=== PATIENT | male | born 1975 | race Caucasian/White ===

== ENCOUNTER 2020-04-24 09:55 | Emergency (ER) | payer OTHER ==
--- NOTE | 2020-04-24 10:24 | ER Document Report ---
ED Hand/Wrist Injury - General Chief Complaint: Hand Injury Stated Complaint: LEFT HAND/WRIST INJURY Time Seen by Provider: 04/24/20 10:19 Primary Care Provider: HUYEN ROY DO [ACTIVE STAFF] - Follow up as needed Mode of Arrival: Ambulatory Information source: Patient Notes: 45-year-old male presented to ED for crush injury to his left hand and wrist. He states he thinks several of his fingers are broken as well as his wrist. He states the air tank fell on his left hand and wrist. He is alert oriented respirations regular nonlabored speaking in full sentences. - HPI Injury to: Wrist, Middle finger - Her fingers hurt the middle finger is the worst on the left hand Onset: Just prior to arrival Where: Work Timing: Still present Quality of pain: Sharp, Throbbing Severity: Severe Pain Level: 5 Context: Crush - Related Data Allergies/Adverse Reactions: No Known Allergies Allergy (Verified 04/24/20 10:22) Past Medical History - General Information source: Patient - Social History Smoking Status: Current Every Day Smoker Cigarette use (# per day): Yes - Pack per day Smoking Education Provided: Yes - 4 minutes Frequency of alcohol use: None Drug Abuse: None Family History: Reviewed & Not Pertinent Patient has suicidal ideation: No Patient has homicidal ideation: No - Past Medical History Cardiac Medical History: Reports: None Pulmonary Medical History: Reports: None EENT Medical History: Reports: None Neurological Medical History: Reports: None Endocrine Medical History: Reports: None Renal/ Medical History: Reports: None Malignancy Medical History: Reports None GI Medical History: Reports: None Musculoskeletal Medical History: Reports Hx Musculoskeletal Trauma Skin Medical History: Reports None Psychiatric Medical History: Reports: Hx Post Traumatic Stress Disorder Traumatic Medical History: Reports: None Infectious Medical History: Reports: None Past Surgical History: Reports: Hx Appendectomy, Hx Orthopedic Surgery - Ulnar nerve repair right Review of Systems - Review of Systems Constitutional: No symptoms reported EENT: No symptoms reported Cardiovascular: No symptoms reported Respiratory: No symptoms reported Gastrointestinal: No symptoms reported Genitourinary: No symptoms reported Male Genitourinary: No symptoms reported Musculoskeletal: Other - Left wrist and hand pain swelling injury Skin: No symptoms reported Hematologic/Lymphatic: No symptoms reported Neurological/Psychological: No symptoms reported -: Yes All other systems reviewed and negative Physical Exam - Vital signs Vitals: Temp Pulse Resp BP Pulse Ox 98.1 F 78 20 134/79 H 96 04/24/20 10:02 04/24/20 10:02 04/24/20 10:02 04/24/20 10:02 04/24/20 10:02 Interpretation: Normal - General General appearance: Appears well, Alert - HEENT Head: Normocephalic, Atraumatic Eyes: Normal Pupils: PERRL - Respiratory Respiratory status: No respiratory distress Chest status: Nontender Breath sounds: Normal Chest palpation: Normal - Cardiovascular Rhythm: Regular Heart sounds: Normal auscultation Murmur: No - Abdominal Inspection: Normal Distension: No distension Bowel sounds: Normal Tenderness: Nontender Organomegaly: No organomegaly - Back Back: Normal, Nontender - Extremities General upper extremity: Normal temperature General lower extremity: Normal inspection, Nontender, Normal color, Normal ROM, Normal temperature, Normal weight bearing. No: Yuval's sign Wrist: Tender, Ecchymosis - Due to pain, Limited ROM Hand: Tender, Ecchymosis, No evidence of human bite, No evidence of FB, Swelling - Neurological Neuro grossly intact: Yes Cognition: Normal Orientation: AAOx4 Avinash Coma Scale Eye Opening: Spontaneous Avinash Coma Scale Verbal: Oriented [place] Coma Scale Motor: Obeys Commands [place] Coma Scale Total: 15 Speech: Normal Motor strength normal: LUE, RUE, LLE, RLE Sensory: Normal - Psychological Associated symptoms: Normal affect, Normal mood - Skin Skin Temperature: Warm Skin Moisture: Dry Skin Color: Normal Course - Re-evaluation Re-evalutation: 04/24/20 21:08 No signs or symptoms of any bony abnormalities noted on the x-rays to his hand and wrist. Patient was given instructions on elevation ice ibuprofen or anti- inflammatories. He was also treated with a cock-up splint due to the pain to the hand and wrist. Patient was instructed to follow-up with the customer energy specialist if he continues to have pain. - Vital Signs Vital signs: Temp Pulse Resp BP Pulse Ox 97.4 F 65 16 122/73 99 04/24/20 11:42 04/24/20 11:42 04/24/20 11:42 04/24/20 11:42 04/24/20 11:42 - Diagnostic Test Radiology reviewed: Image reviewed, Reports reviewed Procedures - Immobilization Left Wrist Time completed: 11:20 Pre-Proc Neuro Vasc Exam: Normal Immobilizer type: Cock-up Performed by: PCT Post-Proc Neuro Vasc Exam: Normal Alignment checked and good: Yes Discharge - Discharge Clinical Impression: Crushing injury of left wrist and hand, initial encounter Condition: Stable Disposition: HOME, SELF-CARE Additional Instructions: Crush Injury Your injury caused a crushing of the tissues. Crush injuries can include skin damage, bleeding within the tissues (hematoma), and muscle injury. Sometimes the crushing damages a nerve or artery. This usually heals without surgery. If there's a break in the skin with the crushing, it's more prone to infection and takes longer to heal than other cuts. Crush injuries may take a long time to heal. In severe cases, there may be actual of tissues -- for example, the skin may turn black and become a "scab." Crush injuries vary in the amount of pain they cause, and in the length of time required for healing. Typically, the area will become bruised, and will remain painful to touch for two or three weeks. However, most patients are back to working and playing within a few days. After the initial period of rest, elevation, and cold-packs, your symptoms (together with the doctor's recommendations) will determine how rapidly you can get back to full activity. Usually this means "do what feels okay, but don't do things that hurt." If re-examination was recommended, it's important to follow up as instructed. Call the doctor or return any time if pain increases, if swelling becomes severe, if you develop numbness or weakness in an injured extremity, or if any other alarming symptoms occur. SPLINT PRECAUTIONS: A splint has been placed. This will protect the area while healing begins. Your problem does NOT normally require a cast. It MUST, however, be held still! Keep the splint on ALL THE TIME until instructed to remove it by the doctor. As you begin to use the area, be careful. You shouldn't do anything which causes discomfort -- you may disturb the injury even with the splint in place. After the initial period of rest and elevation, if splint does not prevent pain when you move, come back. You may require placement of a different splint, or a cast. If there is unexpected severe pain, or numbness, discoloration, or swelling beyond the splint, you should return at once. If you feel that the splint has broken or become loose, come back. ICE & ELEVATION: Apply ice packs frequently against the painful area. Many different schedules are recommended, such as "20 minutes on, 20 minutes off" or "one hour ice, two hours rest." If you need to work, you may need to go longer between ice treatments. You should plan to have the area ice packed AT LEAST one-fourth of the time. The ice should be applied over the wrap, tape, or splint, or over a layer of cloth -- not directly against the skin. Some ice bags have a built-in cloth and can be put directly on the skin. Your injured part should be elevated as much as possible over the next 48 hours. Try to keep the injury above the level of the heart. Avoid use of the injured area. Elevation and rest will decrease the swelling. USE OF [id number] IBUPROFEN: Ibuprofen (Advil, Nuprin, Medipren, Motrin IB) is a medication for fever and pain control. In addition, it has anti- inflammatory effects which may be beneficial, especially in the treatment of injuries. It's best to take ibuprofen with food. Persons with ulcer disease or allergy to aspirin should notify their physician of this before taking ibuprofen. Ibuprofen can be given every four to six hours, for a total of four doses daily. Age Pain or fever dose Antiinflammatory dose 6-8 yr 200 mg (1 tab) 200 mg (1 tab) 9-11 yr 200 mg (1 tab) 200-400 mg (1-2 tab) 11-14 yr 200-400 mg (1-2 tab) 400 mg (2 tab) 15-adult 400 mg (2 tab) 600 mg (3 tab) ORAL NARCOTIC MEDICATION: You have been given a prescription for pain control. This medication is a narcotic. It's best taken with food, as nausea can result if taken on an empty stomach. Don't operate machinery or drive within six hours of taking this medication. Do not combine this medicine with alcohol, or with any medication which can cause sedation (such as cold tablets or sleeping pills) unless you get permission from the physician. Narcotics tend to cause constipation. If possible, drink plenty of fluids and eat a diet high in fiber and fruits. Please be aware that prescription narcotics also have the potential for abuse. People become addicted to these medications because of the general sense of wellbeing that they induce. This feeling along with a significant reduction in tension, anxiety, and aggression provides a stimulating seductive quality to these drugs. Once your pain is under control, we encourage you to discard your unused narcotics. FOLLOW-UP CARE: If you have been referred to a physician for follow-up care, call the physicians office for an appointment as you were instructed or within the next two days. If you experience worsening or a significant change in your symptoms, notify the physician immediately or return to the Emergency Department at any time for re-evaluation. Prescriptions: Oxycodone HCl/Acetaminophen [Percocet 5-325 mg Tablet] 1 tab PO Q6HP PRN #10 tablet PRN Reason: For Pain Scale 3-5 Forms: Elevated Blood Pressure, Smoking Cessation Education Referrals: HUYEN ROY DO [ACTIVE STAFF] - Follow up as needed
--- NOTE | 2020-04-24 10:48 | RADIOLOGY REPORT (SQ) ---
EXAM DESCRIPTION: HAND LEFT 3 VIEWS IMAGES COMPLETED DATE/TIME: 04/24/2020 10:38 am REASON FOR STUDY: Crush injury pain COMPARISON: None. EXAM PARAMETERS: NUMBER OF VIEWS: Three views. TECHNIQUE: AP, lateral and oblique radiographic images acquired of the left hand. LIMITATIONS: None. FINDINGS: MINERALIZATION: Normal. BONES: No acute fracture or dislocation. No worrisome bone lesions. JOINTS: No effusions. SOFT TISSUES: No soft tissue swelling. No foreign body. OTHER: No other significant finding. IMPRESSION: 1. No acute osseous findings. TECHNICAL DOCUMENTATION: JOB ID: [id number] 2010 [employer]- All Rights Reserved Reading location - IP/workstation name: [email or web address]
--- NOTE | 2020-04-24 10:48 | RADIOLOGY REPORT (SQ) ---
EXAM DESCRIPTION: WRIST LEFT 3 VIEWS IMAGES COMPLETED DATE/TIME: 04/24/2020 10:38 am REASON FOR STUDY: Crush injury pain COMPARISON: None. NUMBER OF VIEWS: Three views. TECHNIQUE: AP, lateral, and oblique radiographic images acquired of the left wrist. LIMITATIONS: None. FINDINGS: MINERALIZATION: Normal. BONES: No acute fracture or dislocation. No worrisome bone lesions. Normal alignment. SOFT TISSUES: No soft tissue swelling. No foreign body. OTHER: No other significant finding. IMPRESSION: 1. No acute osseous findings. TECHNICAL DOCUMENTATION: JOB ID: [id number] 2010 [employer]- All Rights Reserved Reading location - IP/workstation name: [email or web address]
[2020-04-24 13:35] VITALS: BP 122/73
== END 2020-04-24 11:42 | disposition home or self-care (01) ==
LOC: ER 09:55
DX: S69.92XA Unspecified injury of left wrist, hand and finger(s), initial encounter (principal); M79.645 Pain in left finger(s); W23.0XXA Caught, crushed, jammed, or pinched between moving objects, initial encounter; F17.210 Nicotine dependence, cigarettes, uncomplicated
CPT/HCPCS: 99283

== ENCOUNTER 2020-08-31 15:23 | Emergency (ER) | payer OTHER ==
[2020-08-31] MEDS ORDERED: ONDANSETRON HCL INJ/PF 4 MG/2 ML SDV IV ONE (15:38)
--- NOTE | 2020-08-31 15:46 | ER Document Report ---
ED Medical Screen (RME) - General Chief Complaint: Fall Injury Stated Complaint: FALL/ LEG PAIN, BACK PAIN Time Seen by Provider: 08/31/20 15:36 - HPI Notes: 08/31/20 15:43 45-year-old male to the emergency department with significant other with complaints of left thigh, knee, lower leg pain as well as left foot pain as well as low back pain headache and right elbow pain. Patient states that he was working in the back of a car on its deck when he lost hold of the deck with a hector. He states he went over the side of the car falling approximately 5 feet. He found the hector coming on him which he pushed away but that made it so that he struck his right forehead on the concrete. He states he is not sure if he had loss of consciousness or not. He states when he went down his left leg snapped back all the way up to the side of him. He states he had some difficulty strain the leg and his colleague helped him make it straight. He also states the bottom of his left foot is very painful. He states that his right elbow is also painful. He admits to nausea and vomiting since the incident. He also states that his low back is starting to hurt. I performed a brief medical screening exam on the patient determined that the patient needs further evaluation and management by main side provider. I have placed initial orders to help expedite care. - Related Data Allergies/Adverse Reactions: morphine Allergy (Verified 08/31/20 15:34) Home Medications: trazadone. ptsd. zoloft Past Medical History - Social History Chew tobacco use (# tins/day): No Frequency of alcohol use: Occasional Musculoskeltal Medical History: Reports Hx Musculoskeletal Trauma Psychiatric Medical History: Reports: Hx Post Traumatic Stress Disorder Past Surgical History: Reports: Hx Appendectomy, Hx Orthopedic Surgery - Ulnar nerve repair right Physical Exam - Vital signs Vitals: Temp 97.9 F 08/31/20 15:30 Course - Vital Signs Vital signs: Temp Pulse Resp BP Pulse Ox 97.9 F 08/31/20 15:30
--- NOTE | 2020-08-31 16:22 | RADIOLOGY REPORT (SQ) ---
EXAM DESCRIPTION: ELBOW RIGHT AP/LAT IMAGES COMPLETED DATE/TIME: 08/31/2020 4:09 pm REASON FOR STUDY: fall, elbow pain COMPARISON: None. EXAM PARAMETERS: NUMBER OF VIEWS: Four views. TECHNIQUE: AP, lateral and oblique radiographic images acquired of the right elbow. LIMITATIONS: None. FINDINGS: MINERALIZATION: Normal. BONES: No acute fracture or dislocation. No worrisome bone lesions. JOINTS: No effusion. SOFT TISSUES: No significant soft tissue swelling. 4 mm metallic radiopaque foreign body in the ante rior- medial soft tissues approximately 7 cm distal to the medial epicondyle. OTHER: No other significant finding. IMPRESSION: NO FRACTURE. 4 mm metallic radiopaque foreign body in the anterior- medial soft tissues approximately 7 cm distal to the medial epicondyle. TECHNICAL DOCUMENTATION: JOB ID: [id number] [place]-72 2010 [employer]- All Rights Reserved Reading location - IP/workstation name: [email or web address]
--- NOTE | 2020-08-31 16:23 | RADIOLOGY REPORT (SQ) ---
EXAM DESCRIPTION: L SPINE WHOLE IMAGES COMPLETED DATE/TIME: 08/31/2020 4:09 pm REASON FOR STUDY: fall, back injury COMPARISON: None. NUMBER OF VIEWS: Five views including obliques. TECHNIQUE: AP, lateral, oblique, and sacral radiographic images acquired of the lumbar spine. LIMITATIONS: None. FINDINGS: MINERALIZATION: Normal. SEGMENTATION: Normal. No transitional anatomy. ALIGNMENT: Normal. VERTEBRAE: Maintained height. No fracture or worrisome bone lesion. DISCS: Preserved height. No significant osteophytes or end plate irregularity. POSTERIOR ELEMENTS: Pedicles and facets are intact. No pars defect or posterior arch defects. HARDWARE: None in the spine. PARASPINAL SOFT TISSUES: Normal. PELVIS: Intact as visualized. No fractures or worrisome bone lesions. SI joints intact. OTHER: No other significant finding. IMPRESSION: NORMAL 5 VIEW LUMBAR SPINE. TECHNICAL DOCUMENTATION: JOB ID: [id number] 2010 [employer]- All Rights Reserved Reading location - IP/workstation name: [email or web address]
--- NOTE | 2020-08-31 16:24 | RADIOLOGY REPORT (SQ) ---
EXAM DESCRIPTION: FOOT LEFT COMPLETE IMAGES COMPLETED DATE/TIME: 08/31/2020 4:09 pm REASON FOR STUDY: fall, foot injury COMPARISON: None. EXAM PARAMETERS: NUMBER OF VIEWS: Three views. TECHNIQUE: AP, lateral and oblique radiographic images acquired of the left foot. LIMITATIONS: None. FINDINGS: MINERALIZATION: Normal. BONES: No acute fracture or dislocation. No worrisome bone lesions. JOINTS: No effusion. SOFT TISSUES: No significant soft tissue swelling. No radiopaque foreign body. OTHER: No other significant finding. IMPRESSION: NO FRACTURE. TECHNICAL DOCUMENTATION: JOB ID: [id number] [place]-72 2010 [employer]- All Rights Reserved Reading location - IP/workstation name: [employer]
--- NOTE | 2020-08-31 16:27 | RADIOLOGY REPORT (SQ) ---
EXAM DESCRIPTION: FEMUR LEFT; TIBIA FIBULA LEFT IMAGES COMPLETED DATE/TIME: 08/31/2020 4:09 pm REASON FOR STUDY: fall, leg injury COMPARISON: None. EXAM PARAMETERS: NUMBER OF VIEWS: 8 TECHNIQUE: AP, lateral and oblique radiographic images acquired of the left femur and tibia-fibula. LIMITATIONS: None. FINDINGS: MINERALIZATION: Normal. BONES: No acute fracture or dislocation. 1 cm osteochondroma in the distal fibular meta-diaphyseal j unction. No worrisome bone lesions. JOINTS: Small knee joint effusion. SOFT TISSUES: No significant soft tissue swelling. No radiopaque foreign body. OTHER: No other significant finding. IMPRESSION: NO FRACTURE.Small knee joint effusion. TECHNICAL DOCUMENTATION: JOB ID: [id number] [place]-72 2010 [employer]- All Rights Reserved Reading location - IP/workstation name: [email or web address]
--- NOTE | 2020-08-31 16:27 | RADIOLOGY REPORT (SQ) ---
EXAM DESCRIPTION: FEMUR LEFT; TIBIA FIBULA LEFT IMAGES COMPLETED DATE/TIME: 08/31/2020 4:09 pm REASON FOR STUDY: fall, leg injury COMPARISON: None. EXAM PARAMETERS: NUMBER OF VIEWS: 8 TECHNIQUE: AP, lateral and oblique radiographic images acquired of the left femur and tibia-fibula. LIMITATIONS: None. FINDINGS: MINERALIZATION: Normal. BONES: No acute fracture or dislocation. 1 cm osteochondroma in the distal fibular meta-diaphyseal j unction. No worrisome bone lesions. JOINTS: Small knee joint effusion. SOFT TISSUES: No significant soft tissue swelling. No radiopaque foreign body. OTHER: No other significant finding. IMPRESSION: NO FRACTURE.Small knee joint effusion. TECHNICAL DOCUMENTATION: JOB ID: [id number] [place]-72 2010 [employer]- All Rights Reserved Reading location - IP/workstation name: [email or web address]
--- NOTE | 2020-08-31 16:44 | RADIOLOGY REPORT (SQ) ---
EXAM DESCRIPTION: CT HEAD WITHOUT IMAGES COMPLETED DATE/TIME: 08/31/2020 4:32 pm REASON FOR STUDY: fall,head injury, [place] COMPARISON: None. TECHNIQUE: Axial images acquired through the brain without intravenous contrast. Images reviewed wi th bone, brain and subdural windows. Additional sagittal and coronal reconstructions were generated. Images stored on PACS. All CT scanners at this facility use dose modulation, iterative reconstruction, and/or weight based d osing when appropriate to reduce radiation dose to as low as reasonably achievable (ALARA). [facility]: Dose Right [facility]: CareDose [facility]: Dose Right [facility]: Teradose 4D [facility]: [facility] RADIATION DOSE: CT Rad equipment meets quality standard of care and radiation dose reduction techniq ues were employed. CTDIvol: 53.2 mGy. DLP: 1070 mGy-cm. mGy. LIMITATIONS: None. FINDINGS: VENTRICLES: Normal size and contour. CEREBRUM: No masses. No hemorrhage. No midline shift. No evidence for acute infarction. Normal gra y/white matter differentiation. No areas of low density in the white matter. CEREBELLUM: No masses. No hemorrhage. No alteration of density. No evidence for acute infarction. EXTRAAXIAL SPACES: No fluid collections. No masses. ORBITS AND GLOBE: No intra- or extraconal masses. Normal contour of globe without masses. CALVARIUM: No fracture. PARANASAL SINUSES: No fluid or mucosal thickening. SOFT TISSUES: No mass or hematoma. OTHER: No other significant finding. IMPRESSION: NORMAL BRAIN CT WITHOUT CONTRAST. EVIDENCE OF ACUTE STROKE: NO. COMMENT: Quality ID # [id number]: Final reports with documentation of one or more dose reduction techniques (e.g., Automated exposure control, adjustment of the mA and/or kV according to patient size, use of iterative reconstruction technique) TECHNICAL DOCUMENTATION: JOB ID: [id number] 2010 [employer]- All Rights Reserved Reading location - IP/workstation name: [email or web address]
--- NOTE | 2020-08-31 16:47 | RADIOLOGY REPORT (SQ) ---
EXAM DESCRIPTION: CT CERVICAL SPINE WITHOUT IMAGES COMPLETED DATE/TIME: 08/31/2020 4:32 pm REASON FOR STUDY: fall, head injury, cannot pass nexus COMPARISON: None. TECHNIQUE: Axial images acquired through the cervical spine without intravenous contrast. Images re viewed with lung, soft tissue and bone windows. Reconstructed coronal and sagittal MPR images review ed. Images stored on PACS. All CT scanners at this facility use dose modulation, iterative reconstruction, and/or weight based d osing when appropriate to reduce radiation dose to as low as reasonably achievable (ALARA). [facility]: Dose Right [facility]: CareDose [facility]: Dose Right [facility]: Teradose 4D [facility]: [employer] RADIATION DOSE: CT Rad equipment meets quality standard of care and radiation dose reduction techniq ues were employed. CTDIvol: 14.4 mGy. DLP: 358 mGy-cm. mGy. LIMITATIONS: None. FINDINGS: ALIGNMENT: Anatomic. MINERALIZATION: Normal. VERTEBRAL BODIES: No fractures or dislocation. DISCS: Mild Multilevel disc space narrowing with osteophytes. FACETS, LATERAL MASSES, POSTERIOR ELEMENTS: Facet arthropathy. No fractures. No dislocation. No ac [place] findings. HARDWARE: None in the spine. VISUALIZED RIBS: No fractures. LUNG APICES AND SOFT TISSUES: No acute findings. OTHER: No other significant finding. IMPRESSION: NO ACUTE FINDINGS. TECHNICAL DOCUMENTATION: JOB ID: [id number] [place]-72 Quality ID # [id number]: Final reports with documentation of one or more dose reduction techniques (e.g., Au tomated exposure control, adjustment of the mA and/or kV according to patient size, use of iterative reconstruction technique) 2010 [employer]- All Rights Reserved Reading location - IP/workstation name: [email or web address]
[2020-08-31 17:25] LABS: ABSOLUTE BASOPHILS # (AUTO) 0.1 10^3/uL (0.0-0.2); ABSOLUTE EOSINOPHILS # (AUTO) 0.1 10^3/uL (0.0-0.6); ABSOLUTE LYMPHOCYTES (AUTO) 2.9 10^3/uL (0.5-4.7); ABSOLUTE MONOCYTES (AUTO) 0.7 10^3/uL (0.1-1.4); ABSOLUTE NEUT (AUTO) 7.4 10^3/uL (1.7-8.2); BASOPHILS % (AUTO) 0.6 % (0-2); EOSINOPHILS % (AUTO) 0.8 % (0-6); HEMATOCRIT 45.6 % (37.9-51.0); HEMOGLOBIN 15.9 g/dL (13.5-17.0); LYMPHOCYTES % (AUTO) 26.2 % (13-45); MEAN CORPUSCULAR HEMOGLOBIN 32.4 pg (27.0-33.4); MEAN CORPUSCULAR HGB CONC 34.8 g/dL (32.0-36.0); MEAN CORPUSCULAR VOLUME 93 fl (80-97); MONOCYTES % (AUTO) 6.4 % (3-13); PLATELET COUNT 263 10^3/uL (150-450); RED CELL DISTRIBUTION WIDTH 14.2 % (11.5-14.0); TOTAL CELLS COUNTED % (AUTO) 100 %; WHITE BLOOD COUNT 11.3 10^3/uL (4.0-10.5)
[2020-08-31 17:45] LABS: ANION GAP 8 (5-19); BLOOD UREA NITROGEN 12 mg/dL (7-20); CALCIUM 9.5 mg/dL (8.4-10.2); CARBON DIOXIDE 24 mmol/L (22-30); CHLORIDE 106 mmol/L (98-107); GLUCOSE 78 mg/dL (75-110); POTASSIUM 4.3 mmol/L (3.6-5.0)
[2020-08-31] MEDS ORDERED: OXYCODONE-ACETAMINOPHEN 5-325 MG TABLET PO ONE (18:34)
[2020-08-31] MEDS ORDERED: ONDANSETRON 4 MG TAB.RAPDIS PO ONE (18:36)
--- NOTE | 2020-08-31 19:12 | ER Document Report ---
ED Fall - General Chief Complaint: Fall Injury Stated Complaint: FALL/ LEG PAIN, BACK PAIN Time Seen by Provider: 08/31/20 15:36 Primary Care Provider: GABRIELE JARRELL MD [EMERITUS] - Follow up in 1 week (for neurology follow up) KATHERYN VALENCIA MD [ACTIVE STAFF] - Follow up in 3-5 days - HPI Notes: 45-year-old male to the emergency department with significant other with complaints of left thigh, knee, lower leg pain as well as left foot pain as well as low back pain headache and right elbow pain. Patient states that he was working in the back of a car on its deck when he lost hold of the deck with a hector. He states he went over the side of the car falling approximately 5 feet. He found the hector coming on him which he pushed away but that made it so that he struck his right forehead on the concrete. He states he is not sure if he had loss of consciousness or not. He states when he went down his left leg snapped back all the way up to the side of him. He states he had some difficulty strain the leg and his colleague helped him make it straight. He also states the bottom of his left foot is very painful. He states that his right elbow is also painful. He admits to nausea and vomiting since the incident. He also states that his low back is starting to hurt. I performed a brief medical screening exam on the patient determined that the patient needs further evaluation and management by main side provider. I have placed initial orders to help expedite care. - Related data Allergies/Adverse Reactions: morphine Allergy (Verified 08/31/20 15:34) Home Medications: trazadone. ptsd. zoloft Past Medical History - General Information source: Patient - Social History Smoking Status: Current Every Day Smoker Chew tobacco use (# tins/day): No Frequency of alcohol use: Occasional Family History: Reviewed & Not Pertinent Patient has homicidal ideation: No Musculoskeletal Medical History: Reports Hx Musculoskeletal Trauma Psychiatric Medical History: Reports: Hx Post Traumatic Stress Disorder Past Surgical History: Reports: Hx Appendectomy, Hx Orthopedic Surgery - Ulnar nerve repair right Review of Systems - Review of Systems Constitutional: denies: Chills, Fever EENT: denies: Ear pain, Throat pain, Difficulty swallowing, Mouth pain Cardiovascular: Syncope - see hpi. denies: Chest pain, Palpitations, Heart racing, Orthopnea, Dyspnea, Dizziness Respiratory: denies: Hurts to breathe, Short of breath Gastrointestinal: denies: Abdominal pain, Diarrhea, Nausea, Vomiting Musculoskeletal: See HPI - see HPI about left foot, left knee, back, Back pain, Joint pain, Joint swelling Skin: No symptoms reported Hematologic/Lymphatic: No symptoms reported Neurological/Psychological: Lost consciousness - see HPI, Headaches Physical Exam - Vital signs Vitals: Temp 97.9 F 08/31/20 15:30 Temp Pulse Resp BP Pulse Ox 97.4 F 73 20 127/77 H 100 08/31/20 19:12 08/31/20 19:12 08/31/20 19:12 08/31/20 19:12 08/31/20 19:12 Intake & Output 09/01/20 09/02/20 09/03/20 06:59 06:59 06:59 Weight 89.358 kg Weight/Height Weight 89.358 kg Height 6 ft 4 in Interpretation: Normal - General General appearance: Appears well, Alert, Anxious In distress: Moderate Notes: moderate pain distress - HEENT Head: Normocephalic, Atraumatic, Other - There is no evidence for contusion or abrasion to the head. The patient points to a specific "part on his anterior right forehead where he thinks he struck his head. A little bit of tenderness to palpation in this area but there is no crepitus or step-off as well as no c ontusion. No: Gamez's sign, Ecchymosis, Open wounds, Racoon's eyes, Tenderness Eyes: Normal Cornea: Normal Pupils: PERRL Ears: Normal External canal: Normal. No: Blood in canal Tympanic membrane: Normal. No: Hemotympanum Sinus: Normal Nasal: Normal Mouth/Lips: Normal Mucous membranes: Normal Pharynx: Normal. No: Blood in hypopharynx, Potential airway comprom. Neck: Normal, Supple. No: Lymphadenopathy Notes: Nontender to midline palpation of the cervical spine. There is no step-off or crepitance. - Respiratory Respiratory status: No respiratory distress Chest status: Nontender Breath sounds: Normal. No: Rales, Rhonchi, Wheezing Chest palpation: Normal. No: Flail segment, Subcutaneous emphysema - Cardiovascular Rhythm: Regular Heart sounds: Normal auscultation Murmur: No - Abdominal Inspection: Normal Distension: No distension Bowel sounds: Normal Tenderness: Nontender. No: Tender, McBurney's point, Capellan's sign, Guarding, Rebound Organomegaly: No organomegaly - Extremities Notes: There is tenderness to palpation over the left knee joint with noted small edema. The patella does not seem to be high rising and the patellar tendon seems to be in place. However the pain is significant enough that patient will not allow me to do valgus varus stress testing or varus stressing. He also cannot tolerate anterior drawer testing He also has tenderness to palpation to the lateral aspect of the left foot with mild edema here. He can perform dorsi flexion and plantar flexion against resistance with 5 out of 5 strength. He can wiggle all toes. DP pulses are intact and equal. Patient does have tenderness to palpation to the midline lumbar spine. He is nontender to palpation to the midline thoracic spine. - Neurological Neuro grossly intact: Yes Cognition: Normal Orientation: AAOx4 [place] Coma Scale Eye Opening: Spontaneous [place] Coma Scale Verbal: Oriented Avinash Coma Scale Motor: Obeys Commands [place] Coma Scale Total: 15 Speech: Normal Cranial nerves: Normal. No: Facial palsy, Forehead sparing, Gaze palsy, Sensory deficit, Tongue deviation Cerebellar coordination: Normal Motor strength normal: LUE, RUE, LLE, RLE Additional motor exam normals: Equal vice president of product marketing. No: Pronator drift Sensory: Normal - Psychological Associated symptoms: Anxious - Skin Skin Temperature: Warm Skin Moisture: Dry Skin Color: Normal Course - Re-evaluation Re-evalutation: Impression: Fall, back strain, foot contusion, knee injury. All x-rays and imaging studies are negative which is reassuring. Suspect he likely did concussed himself when he hit his head so we will give close head injury precautions. Advised about symptoms to look out for for postconcussive syndromes. We will also send him to see neurology for follow-up. In regards to his knee. Given his story, likely that he has some sort of internal derangement. Concern for possible ligamentous injury. Plan to place a knee immobilizer and on crutches. We will send home with pain medicine and muscle relaxant. This but will also be put into a postop shoe. He will have information for follow-up with an orthopedist and I have encouraged him to make that appointment as soon as possible. - Vital Signs Vital signs: Temp Pulse Resp BP Pulse Ox 97.4 F 73 20 127/77 H 100 08/31/20 19:12 08/31/20 19:12 08/31/20 19:12 08/31/20 19:12 08/31/20 19:12 - Laboratory Result Diagrams: 08/31/20 17:02 08/31/20 17:02 Laboratory results interpreted by me: 08/31/20 17:02 WBC 11.3 H RDW 14.2 H - Diagnostic Test Radiology reviewed: Image reviewed, Reports reviewed Discharge - Discharge Clinical Impression: Fall, Derangement of knee, left, Sprain of left foot, Closed head injury Condition: Stable Disposition: HOME, SELF-CARE Instructions: Head Injury Precautions ([facility]), Suspected Internal Knee Injury ([facility]), Sprain ([facility]) Additional Instructions: Wear knee immobilizer without fail. Use crutches. Elevate the knee ice it. Follow-up with neurologist for your head injury. Follow-up with the orthopedist for your knee and foot. Return if worsening symptoms. Prescriptions: Cyclobenzaprine HCl [Flexeril 10 mg Tablet] 10 mg PO TID #30 tablet Ibuprofen [Motrin 800 mg Tablet] 800 mg PO Q8H PRN #30 tab PRN Reason: Oxycodone HCl/Acetaminophen [Percocet 5-325 mg Tablet] 1 - 2 tab PO Q6H PRN #15 tablet PRN Reason: Forms: Return to Work Referrals: KATHERYN VALENCIA MD [ACTIVE STAFF] - Follow up in 3-5 days GABRIELE JARRELL MD [EMERITUS] - Follow up in 1 week (for neurology follow up)
[2020-08-31 19:18] VITALS: BP 127/77
== END 2020-08-31 19:18 | disposition home or self-care (01) ==
LOC: ER 15:23
DX: S09.90XA Unspecified injury of head, initial encounter (principal); S93.602A Unspecified sprain of left foot, initial encounter; M23.92 Unspecified internal derangement of left knee; M79.652 Pain in left thigh; W17.89XA Other fall from one level to another, initial encounter
CPT/HCPCS: 99285; 96374; 36415; 85025; 80048; 73070; 73552; 73630; 72110; 73590; 70450; 72125; S0119